=== PATIENT | male | born 1960 | race Asian ===

== ENCOUNTER 2018-12-02 08:25 | Inpatient (IN) | payer BC ==
[~2018-12-02] VITALS: Ht 170.2 cm; Wt 69.9 kg
--- NOTE | 2018-12-02 08:25 | NUR ---
PT BIB SELF C/O ABSCESS ON PERINEAL AREA, PT IS AAOX4, NOT IN RESPIRATORY DISTRESS, HOOKED TO MONITOR, KEPT RESTED AND COMFORTABLE, WILL CONTINUE TO MONITOR.
--- NOTE | 2018-12-02 08:35 | NUR ---
IV LINE ESTABLISHED, BLOOD DRAWNED AND SENT TO LAB.
--- NOTE | 2018-12-02 08:37 | NUR ---
SEEN AND EXAMINED BY .
[2018-12-02] MEDS: IV NS 0.9% 1,000 ML BAG IV ONE ×2 (08:55→08:56)
[2018-12-02 09:01] LABS: BASOPHILS # (AUTO) 0.1 /CMM (0.0-0.2); BASOPHILS % (AUTO) 0.6 % (0.0-2.0); EOSINOPHILS % (AUTO) 0.6 % (0.0-6.0); HEMATOCRIT 43 % (39-51); HEMOGLOBIN 14.8 g/dL (13.5-17.5); LYMPHOCYTES # (AUTO) 1.4 /CMM (0.8-4.8); LYMPHOCYTES % (AUTO) 11.8 % (20.0-44.0); MEAN CORPUSCULAR HGB CONC 34 g/dl (31.0-36.0); MEAN CORPUSCULAR VOLUME 88 fL (80-96); MONOCYTES # (AUTO) 0.8 /CMM (0.1-1.30); MONOCYTES % (AUTO) 6.5 % (2.0-12.0); NEUTROPHILS # (AUTO) 9.3 /CMM (1.8-8.9); NEUTROPHILS % (AUTO) 80.5 % (43.0-81.0); PLATELET COUNT (AUTO) 176 /CMM (150-450); RED BLOOD CELL COUNT(AUTO) 4.92 MIL/uL (4.5-6.0); WHITE BLOOD COUNT (AUTO) 11.5 K/uL (4.3-11.0)
[2018-12-02 09:07] LABS: CALCIUM, SERUM 9.5 mg/dL (8.5-10.1); CREATININE 1.1 mg/dL (0.6-1.3); POTASSIUM 4.1 mmol/L (3.5-5.1)
[2018-12-02] MEDS ORDERED: IOHEXOL-300 100 ML VIAL IV ONE (09:18)
[2018-12-02] MEDS ORDERED: IV NS 0.9% 250 ML IV ONE (09:19)
[2018-12-02] MEDS ORDERED: PIPERACILLIN /TAZOBACTAM 3.375 G in IV D5W 50 ML IV ONE (11:00)
[2018-12-02] MEDS ORDERED: VANCOMYCIN 1.25 GM in IV D5W 500 ML IV ONE (11:00)
[2018-12-02] MEDS ORDERED: METF-440 PO (11:00)
--- NOTE | 2018-12-02 11:19 | NUR ---
PAGED DR HAMLIN FOR CONSULT
--- NOTE | 2018-12-02 11:30 | NUR ---
CALLED NURSING SUP FOR MEDS[facility]G BED
--- NOTE | 2018-12-02 12:11 | NUR ---
DR HAMLIN CALLED FOR CONSULT
--- NOTE | 2018-12-02 12:18 | NUR ---
ROOM GIVEN: [id number]
--- NOTE | 2018-12-02 12:22 | NUR ---
[facility] PAGED
--- NOTE | 2018-12-02 12:30 | NUR ---
REPORT GIVEN TO JAZLYN PANIAGUA FOR [facility]. WITH ONGOING IV ANTIBIOTIC.
--- NOTE | 2018-12-02 12:35 | NUR ---
[facility] PAGED
--- NOTE | 2018-12-02 12:55 | NUR ---
REPORT GIVEN TO PERICO HOBSON FOR [facility]
[2018-12-02 13:00] VITALS: BP 146/97
--- NOTE | 2018-12-02 13:00 | NUR ---
ADMISSION NOTE PT WAS BROUGHT UP VIA GURNEY AT THIS TIME, A/O X4 BREATHING EVEN AND UNLABORED ON RA, NO S/S OF ANY DISTRESS OR PAIN NOTED, IV IS PATENT AND INTACT, PT REFUSED FOR PHOTOS OF WOUNDS TO BE TAKEN, SAFETY PRECAUTIONS IN PLACE, CALL LIGHT WITHIN REACH, WILL MONITOR ACCORDINGLY
[2018-12-02] MEDS ORDERED: ONDANSETRON HCL/PF 4 MG/2 ML VIAL IVP PRN (15:00)
[2018-12-02] MEDS ORDERED: Z GUARD REMEDY 2 OZ OINT TP PRN (15:00)
[2018-12-02] MEDS ORDERED: ZOLPIDEM TARTRATE 5 MG TABLET PO PRN (15:00)
[2018-12-02] MEDS ORDERED: IV NS 0.45% 1,000 ML IV ONE (15:00)
[2018-12-02] MEDS ORDERED: DEXTROSE 50%-WATER 50 ML DISP.SYRIN IV PRN (15:00)
[2018-12-02] MEDS ORDERED: MAG HYDROX/AL HYDROX/SIMETH 30 ML UDC PO PRN (15:00)
[2018-12-02] MEDS ORDERED: ACETAMINOPHEN 325 MG TABLET PO PRN (15:00)
[2018-12-02] MEDS ORDERED: MAGNESIUM HYDROXIDE 30 ML UDC PO PRN (15:00)
[2018-12-02] MEDS ORDERED: FEE PK DOSING 1 MIN EA MC ONE (15:21)
[2018-12-02 16:00] VITALS: BP 139/89
[2018-12-02] MEDS ORDERED: IV NS 0.45% 500 ML IV ONE (16:00)
[2018-12-02] MEDS: PIPERACILLIN /TAZOBACTAM 3.375 G in IV D5W 100 ML IV SCH (16:28)
[2018-12-02] MEDS: BLOOD SUGAR DIAGNOSTIC 1 EACH STRIP IN SCH ×2 (16:30→21:00)
[2018-12-02] MEDS: INSULIN REGULAR, HUMAN 100 UNIT/ML 3 ML VIAL SQ PRN (16:31)
--- NOTE | 2018-12-02 18:22 | NUR ---
RN CLOSING NOTE PT IN BED AT LOWEST AND LOCKED POSITION WITH SIDE RAILS UPX2, A/O X4 BREATHING EVEN AND UNLABORED ON RA WITH NO S/S OF ANY DISTRESS OR PAIN AT THIS TIME, IV IS PATENT AND INTACT WITH IVF RUNNING, SAFETY PRECAUTIONS IN PLACE, CALL LIGHT IN REACH, ALL NEEDS ATTENDED TO, WILL ENDORSE TO NIGHT RN FOR [facility].
[2018-12-02 20:00] VITALS: BP 148/84
--- NOTE | 2018-12-02 21:00 | NUR ---
MS RN NOTES PT REFUSED BLOOD SUGAR CHECK. EXPLAINED TO PT IMPORTANCE OF BS CHECK IN HIS POC BUT PT STILL REFUSED. WILL CONTINUE TO MONITOR.
[2018-12-02] MEDS: VANCOMYCIN 0.75 GM in IV D5W 250 ML IV SCH (21:29)
[2018-12-03] MEDS: PIPERACILLIN /TAZOBACTAM 3.375 G in IV D5W 100 ML IV SCH ×3 (00:21→16:42)
[2018-12-03] MEDS: BLOOD SUGAR DIAGNOSTIC 1 EACH STRIP IN SCH ×6 (01:00→21:24)
--- NOTE | 2018-12-03 01:00 | NUR ---
MS RN NOTES PT REFUSED BLOOD SUGAR CHECK. EXPLAINED TO PT IMPORTANCE OF BS CHECK IN HIS POC BUT PT STILL REFUSED. WILL CONTINUE TO MONITOR.
[2018-12-03] MEDS: VANCOMYCIN 0.75 GM in IV D5W 250 ML IV SCH ×3 (05:30→19:41)
[2018-12-03 06:29] LABS: BASOPHILS % (AUTO) 0.3 % (0.0-2.0); HEMATOCRIT 43 % (39-51); HEMOGLOBIN 14.5 g/dL (13.5-17.5); LYMPHOCYTES # (AUTO) 1.7 /CMM (0.8-4.8); LYMPHOCYTES % (AUTO) 23.3 % (20.0-44.0); MEAN CORPUSCULAR HGB CONC 34 g/dl (31.0-36.0); MEAN CORPUSCULAR VOLUME 87 fL (80-96); MONOCYTES # (AUTO) 0.6 /CMM (0.1-1.30); MONOCYTES % (AUTO) 8.2 % (2.0-12.0); NEUTROPHILS # (AUTO) 4.8 /CMM (1.8-8.9); NEUTROPHILS % (AUTO) 65.2 % (43.0-81.0); PLATELET COUNT (AUTO) 196 /CMM (150-450); RED BLOOD CELL COUNT(AUTO) 4.91 MIL/uL (4.5-6.0); WHITE BLOOD COUNT (AUTO) 7.4 K/uL (4.3-11.0)
--- NOTE | 2018-12-03 06:32 | NUR ---
MS RN NOTES AWAKE & RESPONSIVE. NOT IN ANY DISTRESS. NO SOB NOTED. DENIES ANY PAIN OR DISCOMFORT AT THIS TIME. WITH IV-HL PATENT & INTACT. MONITORED ACCORDINGLY. CALL LIGHT WITHIN REACH. BED IN LOWEST POSITION. SR UP X 2 FOR SAFETY. WILL ENDORSE TO NEXT SHIFT.
[2018-12-03 06:57] LABS: THYROID STIMULATING HORMONE 2.424 uIU/mL (0.358-3.74)
[2018-12-03 06:59] LABS: CALCIUM, SERUM 9.2 mg/dL (8.5-10.1); CREATININE 0.9 mg/dL (0.6-1.3); PHOSPHORUS 3.8 mg/dL (2.5-4.9); POTASSIUM 4.5 mmol/L (3.5-5.1)
--- NOTE | 2018-12-03 07:35 | NUR ---
RN OPENING NOTES RECEIVED PATIENT IN BED RESTING. A/OX4. NOT IN ANY FORM OF DISTRESS. NO SOB. DENIED ANY PAIN OR DISCOMFORT. KEPT NPO FOR SURGERY TODAY. IV ACCESS INTACT AND PATENT. KEPT PATIENT SAFE AND COMFORTABLE. BED IN LOW/LOCKED POSITION. SIDERAILS UP X2, CALL LIGHT IN REACH. WILL CONTINUE TO MONIOTR ACCORDINGLY.
--- NOTE | 2018-12-03 07:37 | NUR ---
RN NOTES PATIENT ASK IF HE CAN HAVE A LIGHT BREAKFAST SINCE HE IS NOT SCHEDULED FOR SURGERY THIS MORNING. PER PATIENT, MD WILL DO SURGERY IN AFTERNOON. VERIFIED OR IF PATIENT IS SCHEDULED FOR TODAY. PER EVELYN FROM OR, PATIENT IS NOT IN SCHEDULE FOR TODAY. CALLED DR QUEEN'S OFFICE TO ASK IF PATIENT CAN HAVE BREAKFAST, UNABLE TO SPEAK WITH THE DOCTOR BUT WILL RETURN MY CALL PER THE DOCTORS OFFICE.
[2018-12-03 08:00] VITALS: BP 156/94
--- NOTE | 2018-12-03 08:00 | NUR ---
RN NOTES RECEIVED CALL BACK FROM DR LARRY QUEEN. PER MD, KEPT NPO EXCEPT MEDS. WILL DO SURGERY POSSIBLE 11AM OR THIS AFTERNOON. INFORMED PATIENT.
[2018-12-03] MEDS: PANTOPRAZOLE 40 MG TABLET.DR PO SCH (08:16)
--- NOTE | 2018-12-03 09:19 | NUR ---
RN NOTES PATIENT SIGNED THE CONSENT ONLY FOR INCISION AND DRAINAGE OF PERIANAL ABSCESS. REFUSED POSSIBLE FISTULOTOMY, POSSIBLE FISTULECTOMY, POSSIBLE SETON, ANOSCOPY. DR LARRY QUEEN IS AWARE.
--- NOTE | 2018-12-03 10:56 | NUR ---
rn notes picked up for surgery.
[2018-12-03] MEDS ORDERED: MIDAZOLAM HCL 2 MG/2ML VIAL ONE (11:00)
[2018-12-03] MEDS ORDERED: FENTANYL PF 250MCG/5ML AMPUL ONE (11:01)
[2018-12-03] MEDS ORDERED: BUPIVACAINE MPF 0.5% W/EPI INJ 30 ML VIAL ONE (11:42)
[2018-12-03 13:00] VITALS: BP 130/74
--- NOTE | 2018-12-03 13:15 | NUR ---
rn notes patient came back from OR in stable condition. awake, VSS. will continue to moniotr accordingly.
--- NOTE | 2018-12-03 13:20 | NUR ---
rn not8es accucheck non admin. per patient, they checked his sugar in OR.
--- NOTE | 2018-12-03 13:25 | NUR ---
rn notes verified with lyle, pharmacist regarding scheduled 3rd dose of vancomycin with out vanco trough level drawn yet. per lyle, ok to give it
--- NOTE | 2018-12-03 13:25 | NUR ---
rn notes perianal surgical site dressing c/d/i. MD to change first dressing. patient refused photos
[2018-12-03] MEDS: HYDROCODONE/APAP 5/325MG 1 EACH TABLET PO PRN (15:50)
[2018-12-03 16:05] VITALS: BP 133/78
[2018-12-03] MEDS: INSULIN REGULAR, HUMAN 100 UNIT/ML 3 ML VIAL SQ PRN ×2 (17:43→21:25)
--- NOTE | 2018-12-03 19:00 | NUR ---
MS RN OPENING NOTES Received patient A/O x4, awake on Christianson's position on bed. On RA, no complaints of pain at this time. With patent peripheral IV line with Zosyn infusing well at extended dose rate. Discussed to patient the POC, patient verbalized understanding. Kept on bed clean, dry and comfortable. Call light within easy reach. Will continue to monitor accordingly.
--- NOTE | 2018-12-03 19:00 | NUR ---
rn closing notes patient in stable condition. all needs attended and provided. all due medication given as ordered. assisted patient with adls. surgical site dressing c/d/i. kept patient safe and comfortable. bed in low/locked position. siderails upx2, call light in reach. endorsed to karon turpin for cherie.
[2018-12-03 20:00] VITALS: BP 130/72
[2018-12-03] MEDS: MORPHINE SULFATE INJ 2 MG/ML DISP.SYRIN IV PRN (22:31)
[2018-12-04] MEDS: PIPERACILLIN /TAZOBACTAM 3.375 G in IV D5W 100 ML IV SCH ×3 (00:03→15:59)
[2018-12-04] MEDS: BLOOD SUGAR DIAGNOSTIC 1 EACH STRIP IN SCH ×6 (00:13→21:32)
[2018-12-04] MEDS: INSULIN REGULAR, HUMAN 100 UNIT/ML 3 ML VIAL SQ PRN ×6 (00:13→21:34)
[2018-12-04] MEDS: VANCOMYCIN 0.75 GM in IV D5W 250 ML IV SCH ×3 (04:04→20:26)
--- NOTE | 2018-12-04 04:19 | NUR ---
MS RN NOTES Per patient, no blood sugar check and insulin for 0100 and 0500. Patient very knowledgeable of the interventions' indications. Patient is aware of the s/sx of hypo/hyperglycemia. Will continue to monitor the patient accordingly.
[2018-12-04] MEDS: HYDROCODONE/APAP 5/325MG 1 EACH TABLET PO PRN ×3 (06:40→21:36)
[2018-12-04] MEDS: PANTOPRAZOLE 40 MG TABLET.DR PO SCH (06:40)
--- NOTE | 2018-12-04 06:44 | NUR ---
MS RN CLOSING NOTES Patient's blood sugar was checked during the blood draw for morning labs. Patient then requested for insulin, administered as ordered. All nursing needs attended, due meds given as ordered. Patient was medicated for pain, noted effective. Bundled nursing and medical interventions to provide patient longer time of rest, promoting sleep. Patient claimed he has some sleep throughout the shift. Kept on bed clean, dry and comfortable. Call light within easy reach. Will continue to monitor accordingly.
[2018-12-04 07:32] LABS: CALCIUM, SERUM 8.2 mg/dL (8.5-10.1); POTASSIUM 4.2 mmol/L (3.5-5.1)
--- NOTE | 2018-12-04 07:40 | NUR ---
RN MS OPENING NOTES Patient received on room air, no sob noted, remains a/o x4. Patient denies pain at this time, remains with RFA 20 SL, and LFA 22 SL. Blood cx and wound cx pending at this time. Patient able to walk to restroom with good gait. Patients bed remain at the lowest setting, call light within reach, side rails up x2.
[2018-12-04] MEDS: METFORMIN 500 MG TABLET PO SCH ×2 (09:00→17:00)
[2018-12-04] MEDS ORDERED: METF-440 PO (09:51)
[2018-12-04] MEDS ORDERED: METR500T PO (09:56)
[2018-12-04 11:00] VITALS: BP 141/86
[2018-12-04 16:00] VITALS: BP 141/86
[2018-12-04] MEDS: MORPHINE SULFATE INJ 2 MG/ML DISP.SYRIN IV PRN (18:07)
--- NOTE | 2018-12-04 18:39 | NUR ---
RN MS CLOSING NOTES Patient remains on room air, no sob noted, patient remains a/o x4. Patient on RFA 20 and LFA 22 SL, blood xc and wound cx pending at this time. Patient to be dc'd by surgeon. Wound packing changed with minimal bleeding, and maximum comfort given to patient. Patient refused metformin today and stated that he wants to start the medication tomorrow. Bed at the lowest setting, call light within reach, side rail up x2. Will give report to NOC RN for [facility] bedside.
--- NOTE | 2018-12-04 19:05 | NUR ---
MS RN NOTES RECEIVED PT IN BED AWAKE AND ABLE TO MAKE NEEDS KNOWN. PT A/O X3. RESPIRATIONS EVEN AND UNLABORED WITH NO S/S OF ACUTE DISTRESS OR SOB NOTED. PT WITH RFA #20G AND LFA #22G PATENT AND INTACT AND SL. NO COMPLAINTS OF PAIN AT THIS TIME. SAFETY MEASURES IN PLACE WITH BED IN LOWEST LOCKED POSITION WITH SIDE RAILS UP X2. CALL LIGHT WITHIN REACH. WILL CONTINUE TO MONITOR.
[2018-12-04 20:00] VITALS: BP 151/76
--- NOTE | 2018-12-04 20:30 | NUR ---
MS RN NOTES RECEIVED CALL FROM DR. ALFRED, PT WAS CLEARED FOR D/C PER DR QUEEN. INFORMED PT AND PT PREFERRED TO GO HOME AFTER VANCO IV MEDICATION WAS FINISHED INFUSING. WILL CONTINUE TO MONITOR.
--- NOTE | 2018-12-04 21:45 | NUR ---
MS RN NOTES PT REFUSED DISCHARGE PICTURES AND VACCINES.
--- NOTE | 2018-12-04 22:00 | NUR ---
MS MANAGER ATHLETICS NOTES PT A/O X3 AND IN STABLE CONDITION. RESPIRATIONS EVEN AND UNLABORED WITH NO S/S OF ACUTE DISTRESS OR SOB NOTED. PT RFA #20G AND LFA #22G REMOVED WITH NO BLEEDING NOTED. NO COMPLAINTS OF PAIN AT THIS TIME. PT AMBULATORY. DISCHARGE INSTRUCTIONS WENT OVER WITH PT AND PT VERBALIZED UNDERSTANDING. PT BELONGINGS LIST WENT OVER AND PT DENIED ANY MISSING ITEMS. MEDICATIONS WENT OVER WITH PT AND PT VERBALIZED UNDERSTANDING AND PRESCRIPTIONS GIVEN TO PT ALONG WITH DISCHARGE PAPERS.
== END 2018-12-04 22:00 | disposition home or self-care (01) | DRG 357 ==
LOC: ER 08:37 → MED 12:45
PROVIDERS: ADMIT Student in an Organized Health Care Education/Training Program; ATTEND Student in an Organized Health Care Education/Training Program
PROC: 0JBB0ZZ Excision of Perineum Subcutaneous Tissue and Fascia, Open Approach (ICD-10-PCS; principal; 2018-12-03)
DX: K61.2 Anorectal abscess (principal); L02.215 Cutaneous abscess of perineum; E11.65 Type 2 diabetes mellitus with hyperglycemia; Z79.84 Long term (current) use of oral hypoglycemic drugs
CPT/HCPCS: 36415; 71045-TC; 72193-TC; 80048-TC; 80061-TC; 80202-TC; 82962-TC; 83605-TC; 83735-TC; 84100-TC; 84443-TC; 85025-TC; 85730-TC; 87040-TC; 87070-TC; 87075-TC; 87081-TC; 87186-TC; A4217; A6253; A6403; A6407; G0378; J1815; J2250; J2270; J2405; J2543; J2704; J3010; J3370; J3490; J7030; J7050; J7060; Q9967

== ENCOUNTER 2018-12-06 14:48 | Outpatient (CLI) | payer BC ==
[~2018-12-06 14:48] MED LIST: METF-440 PO; METR500T PO
== END 2018-12-06 23:59 | disposition home or self-care (01) ==
LOC: WOU 14:48
PROVIDERS: ATTEND Surgery
DX: T81.89XA Other complications of procedures, not elsewhere classified, initial encounter (principal); E11.9 Type 2 diabetes mellitus without complications; Z79.84 Long term (current) use of oral hypoglycemic drugs; I10 Essential (primary) hypertension
CPT/HCPCS: 11043; A6407

== ENCOUNTER 2018-12-27 14:54 | Outpatient (CLI) | payer BC | END 2018-12-27 23:59 | disposition home or self-care (01) | LOC: WOU 14:54 | PROVIDERS: ATTEND Surgery | DX: T81.89XA Other complications of procedures, not elsewhere classified, initial encounter (principal); E11.9 Type 2 diabetes mellitus without complications; Z79.84 Long term (current) use of oral hypoglycemic drugs; I10 Essential (primary) hypertension | CPT/HCPCS: 11043 ==

== ENCOUNTER 2019-01-03 15:15 | Outpatient (CLI) | payer BC | END 2019-01-03 23:59 | disposition home or self-care (01) | LOC: WOU 15:15 | PROVIDERS: ATTEND Surgery | DX: T81.89XA Other complications of procedures, not elsewhere classified, initial encounter (principal); E11.9 Type 2 diabetes mellitus without complications; Z79.84 Long term (current) use of oral hypoglycemic drugs; I10 Essential (primary) hypertension; K21.9 Gastro-esophageal reflux disease without esophagitis | CPT/HCPCS: 11042 ==

== ENCOUNTER 2019-01-10 14:30 | Outpatient (CLI) | payer BC | END 2019-01-10 23:59 | disposition home or self-care (01) | LOC: WOU 14:30 | PROVIDERS: ATTEND Surgery | DX: T81.89XA Other complications of procedures, not elsewhere classified, initial encounter (principal); E11.9 Type 2 diabetes mellitus without complications; Z79.84 Long term (current) use of oral hypoglycemic drugs; I10 Essential (primary) hypertension; K21.9 Gastro-esophageal reflux disease without esophagitis | CPT/HCPCS: 11043 ==

== ENCOUNTER 2019-06-23 10:38 | Outpatient (CLI) | payer BC | END 2019-06-23 23:59 | disposition home or self-care (01) | LOC: MSC 10:38 | PROVIDERS: ATTEND Internal Medicine | DX: I10 Essential (primary) hypertension (principal); E11.9 Type 2 diabetes mellitus without complications; Z79.4 Long term (current) use of insulin; Z79.84 Long term (current) use of oral hypoglycemic drugs; R80.9 Proteinuria, unspecified; L02.91 Cutaneous abscess, unspecified; Z79.899 Other long term (current) drug therapy ==